=== PATIENT | male | born 1965 | race African-American/Black ===

== ENCOUNTER 2017-02-24 16:53 | Emergency (ER) | payer OTHER ==
[~2017-02-24] VITALS: Ht 182.9 cm; Wt 79.5 kg
[~2017-02-24 16:53] MED LIST: SULF800T23 PO
[2017-02-24 16:57] VITALS: TEMP 37; Ht 182.9 cm; Wt 79.5 kg
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
[2017-02-24] MEDS ORDERED: IBUPROFEN 600 MG TAB ONE (18:18)
[2017-02-24 18:30] VITALS: BP 128/87; PULSE 69; O2SAT 97
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
== END 2017-02-24 18:31 | disposition home or self-care (01) ==
LOC: EDBD 16:53 → C.EDA 16:55
DX: R07.81 Pleurodynia (principal); V64.5XXA Driver of heavy transport vehicle injured in collision with heavy transport vehicle or bus in traffic accident, initial encounter; Y92.411 Interstate highway as the place of occurrence of the external cause; Y99.0 Civilian activity done for income or pay